=== PATIENT | male | born 1995 ===

== ENCOUNTER 2017-05-28 01:25 | Emergency (ER) | payer MEDICAID ==
[2017-05-28 01:29] VITALS: BP 150/77; PULSE 63; RESP 17; TEMP 98; O2SAT 98
[2017-05-28 02:23] LABS: BASO # 0.1 K/uL (0.0-0.2); BASO % 1.2 % (0.0-2.0); EOS # 0.4 K/uL (0.0-0.7); EOS % 5.2 % (0.0-4.0); HEMATOCRIT 40.5 % (35.0-51.0); LYMPH # 2.6 K/uL (1.0-4.3); LYMPH % 38.4 % (20.0-40.0); MEAN CELL VOLUME 80.7 fl (80.0-94.0); MEAN CORPUSCULAR HEMOGLOBIN 26.1 pg (27.0-31.0); MEAN CORPUSCULAR HGB CONC 32.3 g/dL (33.0-37.0); MEAN PLATELET VOLUME 7.5 fl (7.2-11.7); MONO # 0.7 K/uL (0.0-0.8); MONO % 9.6 % (0.0-10.0); NEUT # 3.1 K/uL (1.8-7.0); NEUT % 45.6 % (50.0-75.0); NRBC % 0.1 % (0.0-0.0); RED CELL DISTRIBUTION WIDTH 14.5 % (11.5-14.5); WHITE BLOOD COUNT 6.8 K/uL (4.8-10.8)
--- NOTE | 2017-05-28 02:23 | ED PDOC ---
HPI: Abdomen Time Seen by Provider: 05/28/17 01:38 Chief Complaint (Nursing): Abdominal Pain Chief Complaint (Provider): Abdominal Pain History Per: Patient History/Exam Limitations: no limitations Onset/Duration Of Symptoms: Days (x3), Gradual, Persistent Current Symptoms Are (Timing): Still Present Location Of Pain/Discomfort: RLQ (right lower/mid abdominal region) Quality Of Discomfort: Pressure Associated Symptoms: denies: Nausea, Vomiting, Diarrhea, Loss Of Appetite Additional Complaint(s): 21 year old male presents to ED with complaints of right lower/mid abdominal pain x3 days and has no past medical history. Patient notes that pain has progressively worsened with time and describes the pain as a pressure sensation. (-) nausea, vomiting, diarrhea, or loss of appetite. PCP: Dr. Navarro Past Medical History Reviewed: Historical Data, Nursing Documentation, Vital Signs Vital Signs: Last Vital Signs Temp 98 F 05/28/17 01:26 Pulse 63 05/28/17 01:26 Resp 17 05/28/17 01:26 BP 150/77 05/28/17 01:26 Pulse Ox 98 05/28/17 03:58 - Medical History PMH: No Chronic Diseases - Surgical History Surgical History: No Surg Hx - Family History Family History: States: No Known Family Hx - Social History Current smoker - smoking cessation education provided: No Ex-Smoker (has not smoked in the last 12 months): No Drugs: Denies - Immunization History Hx Tetanus Toxoid Vaccination: No Hx Influenza Vaccination: No Hx Pneumococcal Vaccination: No - Home Medications Home Medications: Ambulatory Orders Medication Instructions Recorded Naproxen [Naprosyn] 1 tab PO BID PRN #30 tab 09/11/16 Dicyclomine [Bentyl] 20 mg PO Q12 PRN #20 tab 05/28/17 - Allergies Allergies/Adverse Reactions: Allergies Allergy/AdvReac Type Severity Reaction Status Date / Time soy Allergy SHORTNESS Verified 09/11/16 13:12 OF BREATH Review of Systems ROS Statement: Except As Marked, All Systems Reviewed And Found Negative Gastrointestinal: Positive for: Abdominal Pain (right lower/mid abdominal pain) . Negative for: Nausea, Vomiting, Diarrhea, Other ((-) loss of appetite) Physical Exam - Reviewed Nursing Documentation Reviewed: Yes Vital Signs Reviewed: Yes - Physical Exam Appears: Positive for: Non-toxic, No Acute Distress Head Exam: Positive for: ATRAUMATIC, NORMOCEPHALIC Skin: Positive for: Normal Color, Warm, Dry Eye Exam: Positive for: EOMI, Normal appearance, PERRL ENT: Positive for: Normal ENT Inspection Neck: Positive for: Normal, Painless ROM, Supple Cardiovascular/Chest: Positive for: Regular Rate, Rhythm. Negative for: Murmur Respiratory: Positive for: Normal Breath Sounds. Negative for: Respiratory Distress Gastrointestinal/Abdominal: Positive for: Soft, Tenderness (mild tenderness to right mid abdominal region). Negative for: Guarding, Rebound Back: Positive for: Normal Inspection Extremity: Positive for: Normal ROM. Negative for: Deformity Neurologic/Psych: Positive for: Alert, Oriented. Negative for: Motor/Sensory Deficits - Laboratory Results Result Diagrams: 05/28/17 02:20 05/28/17 02:20 - ECG O2 Sat by Pulse Oximetry: 98 (RA) Pulse Ox Interpretation: Normal Medical Decision Making Medical Decision Makin Initial impression: right mid abdominal pain Initial plan: * CTA A/P * Labs * Liapse * UDip * Toradol 10mg IV * UA * Re-eval 0333 CT FINDINGS Lower thorax: The bilateral lung bases are clear. ABDOMEN: Liver: No acute findings. Gallbladder and bile ducts: The gallbladder is decompressed. No calcified stones. No significant intra- or extrahepatic biliary ductal dilation. Pancreas: Enhances homogeneously. No ductal dilation. No discrete mass. Spleen: No acute findings. Adrenals: No acute findings. Kidneys and ureters: No acute findings. No hydronephrosis or renal calculi. No discrete solid mass. PELVIS: Bladder: No acute findings. Reproductive: No acute findings. Appendix: The appendix is not definitively visualized. However, no pericecal inflammatory change is identified to suggest the presence of acute appendicitis. ABDOMEN and PELVIS: Stomach and bowel: Aerated gastric contents. No significant mucosal thickening. No discrete obstruction or transition point. Peritoneum: A moderate amount of free fluid is identified within the deep pelvis. No free air. Lymph nodes: No pathologically enlarged lymph nodes. Vasculature: Unremarkable. Bones: No acute fracture. IMPRESSION: A moderate amount of free fluid within the deep pelvis, never a normal finding in a male patient. The appendix is not visualized 0400 Upon re-evaluation, (-) McBurney's point, obturator sign, or psoas sign. No abdominal tenderness. Patient will be discharged home with Bentyl. Diagnosis: abdominal pain Patient will follow up with PCP. Return precautions given. Scribe Attestation: Documented by Emani Masters acting as a scribe for Js Ward MD. MD Diallo Attestation: All medical record entries made by the Scribe were at my direction and personally dictated by me. I have reviewed the chart and agree that the record accurately reflects my personal performance of the history, physical exam, medical decision making, and the department course for this patient. I have also personally directed, reviewed, and agree with the discharge instructions and disposition. Disposition - Clinical Impression Clinical Impression: Abdominal pain - Disposition Referrals: Flakito Grover Jr., MD [Primary Care Provider] - Disposition: Routine/Home Disposition Time: 04:00 Condition: STABLE Prescriptions: Dicyclomine [Bentyl] 20 mg PO Q12 PRN #20 tab PRN Reason: abdominal pain Instructions: Abdominal Pain (ED) Forms: [employer] (Thai)
[2017-05-28 02:33] LABS: RBC URINE 2 /hpf (0-3); URINE BILIRUBIN NEGATIVE (NEGATIVE); URINE BLOOD NEGATIVE (NEGATIVE); URINE COLOR YELLOW (YELLOW); URINE GLUCOSE (UA) NEG (Normal); URINE KETONE NEGATIVE (NEGATIVE); URINE LEUKOCYTE ESTERASE NEG Leu/uL (Negative); URINE PROTEIN NEGATIVE (NEGATIVE); URINE UROBILINOGEN 0.2-1.0 mg/dL (0.2-1.0); WBC URINE 1 /hpf (0-5)
[2017-05-28 02:47] LABS: BLOOD UREA NITROGEN 26 mg/dl (9-20); CALCIUM 9.5 mg/dL (8.4-10.2); CARBON DIOXIDE 29 mmol/L (22-30); CHLORIDE 99 mmol/L (98-107); GFR AFRICAN-AMERICAN > 60; GLUCOSE,RANDOM 85 mg/dL (75-110); POTASSIUM 3.9 MMOL/L (3.6-5.0); SODIUM 139 mmol/l (132-148)
[2017-05-28 02:48] LABS: ALKALINE PHOSPHATASE 41 U/L (38-126); ALT/SGPT 60 U/L (21-72); AST/SGOT 38 U/L (17-59); BILIRUBIN,TOTAL 0.5 mg/dl (0.2-1.3)
[2017-05-28 02:51] LABS: ALB/GLOB RATIO 1.7 (1.0-2.1); LIPASE 83 U/L (23-300)
[2017-05-28] MEDS ORDERED: Sodium Chloride 0.9% 50 ML IV ONE (02:54)
[2017-05-28] MEDS ORDERED: Iohexol 300 100 ML IJ ONE (02:54)
--- NOTE | 2017-05-28 03:33 | CT ---
EXAM: CT Abdomen and Pelvis With Intravenous Contrast CLINICAL HISTORY: 21 years old, male; Pain; Abdominal pain; Localized; Right; Additional info: Right sided abdominal pain TECHNIQUE: Axial computed tomography images of the abdomen and pelvis with intravenous contrast. All CT scans at this facility use one or more dose reduction techniques, viz.: automated exposure control; ma/kV adjustment per patient size (including targeted exams where dose is matched to indication; i.e. head); or iterative reconstruction technique. Coronal and sagittal reformatted images were created and reviewed. CONTRAST: 95 mL of [id number] administered intravenously. COMPARISON: CT - ABDOMEN^ABD RHODA (ADULT) 08/08/2009 3:34:29 AM examination is markedly limited, secondary to a lack of intra-abdominal fat, a significant change from previous examination performed in 2008. FINDINGS: Lower thorax: The bilateral lung bases are clear. ABDOMEN: Liver: No acute findings. Gallbladder and bile ducts: The gallbladder is decompressed. No calcified stones. No significant intra- or extrahepatic biliary ductal dilation. Pancreas: Enhances homogeneously. No ductal dilation. No discrete mass. Spleen: No acute findings. Adrenals: No acute findings. Kidneys and ureters: No acute findings. No hydronephrosis or renal calculi. No discrete solid mass. PELVIS: Bladder: No acute findings. Reproductive: No acute findings. Appendix: The appendix is not definitively visualized. However, no pericecal inflammatory change is identified to suggest the presence of acute appendicitis. ABDOMEN and PELVIS: Stomach and bowel: Aerated gastric contents. No significant mucosal thickening. No discrete obstruction or transition point. Peritoneum: A moderate amount of free fluid is identified within the deep pelvis. No free air. Lymph nodes: No pathologically enlarged lymph nodes. Vasculature: Unremarkable. Bones: No acute fracture. IMPRESSION: A moderate amount of free fluid within the deep pelvis, never a normal finding in a male patient. The appendix is not visualized. examination is markedly limited, secondary to a lack of intra-abdominal fat, a significant change from previous examination performed in 2008.
== END 2017-05-28 04:15 | disposition home or self-care (01) ==
LOC: H.ER 01:25
DX: R10.31 Right lower quadrant pain (principal)
CPT/HCPCS: 74177; 80053; 81003; 83690; 85025; 96374; 99282; J1885; Q9967

== ENCOUNTER 2018-04-19 22:34 | Emergency (ER) | payer MEDICAID ==
[2018-04-19 22:43] VITALS: BMI 31.1
[2018-04-19 22:47] VITALS: TEMP 98.5
--- NOTE | 2018-04-19 23:16 | ED PDOC ---
HPI: Allergic Reaction Time Seen by Provider: 04/19/18 23:11 Chief Complaint (Nursing): Allergic Reaction Chief Complaint (Provider): palpitations History Per: Patient (22 y/o male here for evaluation of palpitations/flushed/ sob that occurred after ingestion of 2 tablespoons of peanut butter. Patient took benadryl 50 mg subsequently and states has noted relief now that he is Emergency room. Notes he has allergic reaction to soy milk in past resulting in swelling in eyes in past.) Past Medical History Reviewed: Historical Data, Nursing Documentation, Vital Signs Vital Signs: Last Vital Signs Temp 98.5 F 04/19/18 22:43 Pulse 75 04/19/18 22:43 Resp 18 04/19/18 22:43 BP 134/85 04/19/18 22:43 Pulse Ox 99 04/19/18 22:43 - Family History Family History: States: Unknown Family Hx - Immunization History Hx Tetanus Toxoid Vaccination: No Hx Influenza Vaccination: No Hx Pneumococcal Vaccination: No - Home Medications Home Medications: Ambulatory Orders Medication Instructions Recorded Naproxen [Naprosyn] 1 tab PO BID PRN #30 tab 09/11/16 Dicyclomine [Bentyl] 20 mg PO Q12 PRN #20 tab 05/28/17 DiphenhydrAMINE [Benadryl] 50 mg PO Q6 PRN #15 cap 04/20/18 Epinephrine [Epipen] 0.3 mg IJ ONCE PRN #1 auto.injct 04/20/18 Famotidine [Pepcid] 20 mg PO BID #10 tab 04/20/18 Prednisone [Deltasone] 3 tab PO DAILY #12 tablet 04/20/18 - Allergies Allergies/Adverse Reactions: Allergies Allergy/AdvReac Type Severity Reaction Status Date / Time soy Allergy SHORTNESS Verified 04/19/18 22:43 OF BREATH Review of Systems ROS Statement: Except As Marked, All Systems Reviewed And Found Negative Physical Exam - Reviewed Nursing Documentation Reviewed: Yes Vital Signs Reviewed: Yes - Physical Exam Appears: Positive for: Well, Non-toxic, No Acute Distress Head Exam: Positive for: ATRAUMATIC, NORMAL INSPECTION, NORMOCEPHALIC Skin: Positive for: Normal Color, Warm, DRY Eye Exam: Positive for: EOMI, Normal appearance, PERRL ENT: Positive for: Normal ENT Inspection Neck: Positive for: Normal, Painless ROM Cardiovascular/Chest: Positive for: Regular Rate, Rhythm Respiratory: Positive for: CNT, Normal Breath Sounds Gastrointestinal/Abdominal: Positive for: Normal Exam, Soft Back: Positive for: Normal Inspection Extremity: Positive for: Normal ROM Neurologic/Psych: Positive for: Alert, Oriented - Laboratory Results Result Diagrams: 04/19/18 23:32 04/19/18 23:32 - ECG O2 Sat by Pulse Oximetry: 99 - Progress ED Course And Treament: Solumedrol 125 mg iv x 1 dose Pepcid 20 mg iv x 1 dose Patient observed in ED with no worsening/return of symptoms. Disposition - Clinical Impression Clinical Impression: Allergic reaction - Patient ED Disposition Is Patient to be Admitted: No - Disposition Disposition: Routine/Home Disposition Time: 01:19 Condition: FAIR Prescriptions: DiphenhydrAMINE [Benadryl] 50 mg PO Q6 PRN #15 cap PRN Reason: Shortness Of Breath Epinephrine [Epipen] 0.3 mg IJ ONCE PRN #1 auto.injct PRN Reason: Anaphylaxis Famotidine [Pepcid] 20 mg PO BID #10 tab Prednisone [Deltasone] 3 tab PO DAILY #12 tablet Instructions: Food Allergy
[2018-04-19 23:39] LABS: BASO # 0.1 K/uL (0.0-0.2); BASO % 1.3 % (0.0-2.0); EOS # 0.4 K/uL (0.0-0.7); EOS % 4.6 % (0.0-4.0); HEMOGLOBIN 12.9 g/dL (12.0-18.0); LYMPH # 2.7 K/uL (1.0-4.3); LYMPH % 30.4 % (20.0-40.0); MEAN CELL VOLUME 80.8 fl (80.0-94.0); MEAN CORPUSCULAR HGB CONC 33.4 g/dL (33.0-37.0); MONO # 0.9 K/uL (0.0-0.8); MONO % 10.4 % (0.0-10.0); NEUT # 4.8 K/uL (1.8-7.0); NEUT % 53.3 % (50.0-75.0); RBC 4.78 Mil/uL (4.40-5.90); WHITE BLOOD COUNT 8.9 K/uL (4.8-10.8)
[2018-04-19 23:48] LABS: BLOOD UREA NITROGEN 19 mg/dl (9-20); GFR NON-AFRICAN AMERICAN > 60
[2018-04-20 03:16] VITALS: BP 129/66; PULSE 88; RESP 16; O2SAT 98
== END 2018-04-20 02:16 | disposition home or self-care (01) ==
LOC: H.ER 22:34
DX: T78.40XA Allergy, unspecified, initial encounter (principal); T78.1XXA Other adverse food reactions, not elsewhere classified, initial encounter
CPT/HCPCS: 80048; 83735; 85025; 96374; J2930

== ENCOUNTER 2018-06-22 15:24 | Emergency (ER) | payer MEDICAID ==
[2018-06-22 15:25] VITALS: BMI 31.1
[2018-06-22 15:37] VITALS: BP 128/77; PULSE 97; RESP 18; TEMP 98.2; O2SAT 100
--- NOTE | 2018-06-22 16:13 | ED PDOC ---
HPI: Headache Time Seen by Provider: 06/22/18 15:46 Chief Complaint (Nursing): Cough, Cold, Congestion Chief Complaint (Provider): Headache History Per: Patient History/Exam Limitations: no limitations Current Symptoms Are (Timing): Still Present Quality: Pressure Additional Complaint(s): 22 y/o male with no significant PMHx presents to the ED for evaluation of a head ache, onset three weeks ago. Patient describes headache as "pressure-like" located to the front of his forehead and is associated with nasal congestion. Denies fever and chills. PMD: none provided Past Medical History Reviewed: Historical Data, Nursing Documentation, Vital Signs Vital Signs: Last Vital Signs Temp 98.2 F 06/22/18 15:35 Pulse 97 H 06/22/18 15:35 Resp 18 06/22/18 15:35 BP 128/77 06/22/18 15:35 Pulse Ox 100 06/22/18 15:35 - Medical History PMH: No Chronic Diseases - Surgical History Surgical History: No Surg Hx - Family History Family History: States: Unknown Family Hx - Immunization History Hx Tetanus Toxoid Vaccination: No Hx Influenza Vaccination: No Hx Pneumococcal Vaccination: No - Home Medications Home Medications: Ambulatory Orders Medication Instructions Recorded Naproxen [Naprosyn] 1 tab PO BID PRN #30 tab 09/11/16 Dicyclomine [Bentyl] 20 mg PO Q12 PRN #20 tab 05/28/17 DiphenhydrAMINE [Benadryl] 50 mg PO Q6 PRN #15 cap 04/20/18 Epinephrine [Epipen] 0.3 mg IJ ONCE PRN #1 auto.injct 04/20/18 Famotidine [Pepcid] 20 mg PO BID #10 tab 04/20/18 Prednisone [Deltasone] 3 tab PO DAILY #12 tablet 04/20/18 Amoxicillin/Clavulanate [Augmentin 1 tab PO BID #20 tab 06/22/18 875 MG-125 MG] Fexofenadine/Pseudoephedrine 1 each PO BID PRN #12 tab.er.12h 06/22/18 [Yennifer-D 12 Hour Tablet] - Allergies Allergies/Adverse Reactions: Allergies Allergy/AdvReac Type Severity Reaction Status Date / Time soy Allergy SHORTNESS Verified 06/22/18 15:35 OF BREATH Review of Systems ROS Statement: Except As Marked, All Systems Reviewed And Found Negative ENT: Positive for: Nose Congestion Neurological: Positive for: Headache Physical Exam - Reviewed Nursing Documentation Reviewed: Yes Vital Signs Reviewed: Yes - Physical Exam Appears: Positive for: No Acute Distress Head Exam: Positive for: ATRAUMATIC Skin: Positive for: Normal Color, Warm, Dry Eye Exam: Positive for: Normal appearance ENT: Positive for: Normal ENT Inspection Neck: Positive for: Normal Cardiovascular/Chest: Positive for: Regular Rate, Rhythm. Negative for: Murmur Respiratory: Positive for: Normal Breath Sounds. Negative for: Respiratory Distress Extremity: Positive for: Normal ROM Neurologic/Psych: Positive for: Alert, Oriented (x3). Negative for: Motor/Sensory Deficits - ECG O2 Sat by Pulse Oximetry: 100 (RA) Pulse Ox Interpretation: Normal Medical Decision Making Medical Decision Making: Time: 1611 -- Patient is stable for discharge with a diagnosis of acute sinusitis. Patient given prescription of Augmentin and Yennifer-D for symptom relief. - Scribe Attestation: Documented by Dorita Malone, acting as a scribe for Kerline Yun PA-C. Provider Scribe Attestation: All medical record entries made by the Scribe were at my direction and personally dictated by me. I have reviewed the chart and agree that the record accurately reflects my personal performance of the history, physical exam, medical decision making, and the department course for this patient. I have also personally directed, reviewed, and agree with the discharge instructions and disposition. Disposition - Clinical Impression Clinical Impression: Acute sinusitis - Disposition Disposition: Routine/Home Prescriptions: Amoxicillin/Clavulanate [Augmentin 875 MG-125 MG] 1 tab PO BID #20 tab Fexofenadine/Pseudoephedrine [Yennifer-D 12 Hour Tablet] 1 each PO BID PRN #12 tab.er.12h PRN Reason: Cough And Congestion Instructions: Sinusitis, Adult (DC) Forms: [employer] (Estonian)
--- NOTE | 2018-06-22 16:13 | ED PDOC ---
HPI: CCC, URI, Sore Throat Time Seen by Provider: 06/22/18 15:46 Chief Complaint (Nursing): Cough, Cold, Congestion Past Medical History Vital Signs: Last Vital Signs Temp 98.2 F 06/22/18 15:35 Pulse 97 H 06/22/18 15:35 Resp 18 06/22/18 15:35 BP 128/77 06/22/18 15:35 Pulse Ox 100 06/22/18 15:35 - Family History Family History: States: Unknown Family Hx - Immunization History Hx Tetanus Toxoid Vaccination: No Hx Influenza Vaccination: No Hx Pneumococcal Vaccination: No - Home Medications Home Medications: Ambulatory Orders Medication Instructions Recorded Naproxen [Naprosyn] 1 tab PO BID PRN #30 tab 09/11/16 Dicyclomine [Bentyl] 20 mg PO Q12 PRN #20 tab 05/28/17 DiphenhydrAMINE [Benadryl] 50 mg PO Q6 PRN #15 cap 04/20/18 Epinephrine [Epipen] 0.3 mg IJ ONCE PRN #1 auto.injct 04/20/18 Famotidine [Pepcid] 20 mg PO BID #10 tab 04/20/18 Prednisone [Deltasone] 3 tab PO DAILY #12 tablet 04/20/18 Amoxicillin/Clavulanate [Augmentin 1 tab PO BID #20 tab 06/22/18 875 MG-125 MG] Fexofenadine/Pseudoephedrine 1 each PO BID PRN #12 tab.er.12h 06/22/18 [Yennifer-D 12 Hour Tablet] - Allergies Allergies/Adverse Reactions: Allergies Allergy/AdvReac Type Severity Reaction Status Date / Time soy Allergy SHORTNESS Verified 06/22/18 15:35 OF BREATH - ECG O2 Sat by Pulse Oximetry: 100 Disposition - Clinical Impression Clinical Impression: Acute sinusitis - Patient ED Disposition Is Patient to be Admitted: No Counseled Patient/Family Regarding: Diagnosis, Need For Followup, Rx Given - Disposition Disposition: Routine/Home Disposition Time: 16:07 Condition: GOOD Prescriptions: Amoxicillin/Clavulanate [Augmentin 875 MG-125 MG] 1 tab PO BID #20 tab Fexofenadine/Pseudoephedrine [Yennifer-D 12 Hour Tablet] 1 each PO BID PRN #12 tab.er.12h PRN Reason: Cough And Congestion Instructions: Sinusitis, Adult (DC)
== END 2018-06-22 16:12 | disposition home or self-care (01) ==
LOC: H.ER 15:24
DX: J01.90 Acute sinusitis, unspecified (principal)